=== PATIENT | female | born 1965 | race Caucasian/White ===

== ENCOUNTER 2016-10-12 21:46 | Emergency (ER) | payer MEDICARE, OTHER ==
[~2016-10-12] VITALS: Ht 162.6 cm; Wt 84.0 kg
[2016-10-12 21:51] VITALS: BP 213/116; PULSE 98; RESP 18; TEMP 98.3; O2SAT 93
[2016-10-12 22:05] VITALS: RESP 16; O2SAT 96
[2016-10-12] MEDS ORDERED: LYRI50CA PO (22:10)
[2016-10-12] MEDS ORDERED: OXYC1CAP PO (22:10)
[2016-10-12] MEDS ORDERED: DIVA250ER PO (22:10)
[2016-10-12] MEDS ORDERED: LISI-519 PO (22:10)
[2016-10-12] MEDS ORDERED: BACL10TA PO (22:10)
[2016-10-12] MEDS ORDERED: SODIUM CHLORIDE 0.9% FLUSH 5 ML FLUSH IV FLUSH PRN (22:30)
[2016-10-12 23:02] LABS: AUTOMATED NEUTROPHIL # 8.3 TH/MM3 (1.8-7.7); BASOPHIL # 0.1 TH/MM3 (0-0.2); BASOPHIL % 0.4 % (0.0-2.0); EOSINOPHIL # 0.2 TH/MM3 (0-0.4); EOSINOPHIL % 1.5 % (0.0-4.0); HEMATOCRIT 43.2 % (35.0-46.0); HEMO FLAGS DIFF FINAL; LYMPH % 18.4 % (9.0-44.0); LYMPHOCYTE # 2.1 TH/MM3 (1.0-4.8); MEAN CELL VOLUME 97.2 FL (80.0-100.0); MEAN CORPUSCULAR HEMOGLOBIN 32.8 PG (27.0-34.0); MEAN CORPUSCULAR HGB CONC 33.7 % (32.0-36.0); NEUT % 71.7 % (16.0-70.0); PLATELET COUNT 238 TH/MM3 (150-450); RED BLOOD COUNT 4.44 MIL/MM3 (4.00-5.30); RED CELL DISTRIBUTION WIDTH 12.9 % (11.6-17.2); WHITE BLOOD COUNT 11.6 TH/MM3 (4.0-11.0)
[2016-10-12 23:18] LABS: PROTHROMBIN TIME - PATIENT 10.5 SEC (9.8-11.6)
[2016-10-12 23:21] LABS: ANION GAP 7 MEQ/L (5-15); BICARBONATE 29.1 MEQ/L (21.0-32.0); BLOOD UREA NITROGEN 15 MG/DL (7-18); CHLORIDE 112 MEQ/L (98-107); GLOMERULAR FILTRATION RATE 92 ML/MIN (>89); POTASSIUM 3.8 MEQ/L (3.5-5.1); SODIUM (NA) 148 MEQ/L (136-145)
--- NOTE | 2016-10-12 23:21 | PD ---
HPI Chief Complaint: Altered Mental Status Time Seen by Provider: 21:49 Travel History International Travel<30 days: No Contact w/Intl Traveler<30days: No Traveled to known affect area: No History of Present Illness HPI 51yo F with PMH of chronic back pain was brought in by because she was falling asleep while having dinner. States she has had these episodes before and has gotten sleep studies but nothing was wrong. Pt does take oxycodone 5mg for pain. She is also on lisinopril, lyria, baclofen and depakote. Pt woke up when they transferred her to stretcher from car and was immediately very upset that she is in the hospital. Pt denies any complaints. Denies any trauma. PFSH Past Medical History Depression: Yes Cardiovascular Problems: Yes Diminished Hearing: No Hypertension: Yes Musculoskeletal: Yes (chronic back pain) Seizures: Yes ?: Not Menopausal: Yes Social History Alcohol Use: No Tobacco Use: Yes (1 ppd) Substance Use: No Allergies-Medications (Allergen,Severity, Reaction): Coded Allergies: No Known Allergies (Unverified , 10/12/16) Reported Meds & Prescriptions Reported Meds & Active Scripts Active Reported Depakote ER (Divalproex Sodium) 250 Mg Marco 250 Mg PO DAILY Baclofen 10 Mg Tab 10 Mg PO TID Lyrica (Pregabalin) 50 Mg Cap 50 Mg PO DAILY Lisinopril 5 Mg Tab 5 Mg PO DAILY Oxycodone (Oxycodone HCl) 5 Mg Cap 5 Mg PO Q6H PRN Review of Systems Except as stated in HPI: all other systems reviewed are Neg Physical Exam Narrative GENERAL: 51yo F not in distress. SKIN: Focused skin assessment warm/dry. HEAD: Atraumatic. Normocephalic. EYES: Pupils equal and round. No scleral icterus. No injection or drainage. ENT: No nasal bleeding or discharge. Mucous membranes pink and moist. NECK: Trachea midline. No JVD. CARDIOVASCULAR: Regular rate and rhythm. No murmur appreciated. RESPIRATORY: No accessory muscle use. Clear to auscultation. Breath sounds equal bilaterally. GASTROINTESTINAL: Abdomen soft, non-tender, nondistended. MUSCULOSKELETAL: No obvious deformities. No clubbing. No cyanosis. No edema. NEUROLOGICAL: Awake and alert. No obvious cranial nerve deficits. Motor grossly within normal limits. Normal speech. Data Data Last Documented VS Vital Signs Date Time Temp Pulse Resp B/P Pulse Ox O2 Delivery O2 Flow Rate FiO2 10/12/16 21:51 98.3 98 18 213/116 93 Orders Basic Metabolic Panel (Bmp) (10/12/16 22:20) Complete Blood Count With Diff (10/12/16 22:20) Prothrombin Time / Inr (Pt) (10/12/16 22:20) Act Partial Throm Time (Ptt) (10/12/16 22:20) Thyroid Stimulating Hormone (10/12/16 22:20) Ct Brain W/O Iv Contrast(Rout) (10/12/16 22:20) Blood Glucose (10/12/16 22:20) Ecg Monitoring (10/12/16 22:20) Iv Access Insert/Monitor (10/12/16 22:20) Oximetry (10/12/16 22:20) Sodium Chloride 0.9% Flush (Ns Flush) (10/12/16 22:30) Valproic Acid (Depakene) (10/12/16 22:00) Labs Laboratory Tests Test 10/12/16 22:00 White Blood Count 11.6 TH/MM3 Red Blood Count 4.44 MIL/MM3 Hemoglobin 14.5 GM/DL Hematocrit 43.2 % Mean Corpuscular Volume 97.2 FL Mean Corpuscular Hemoglobin 32.8 PG Mean Corpuscular Hemoglobin 33.7 % Concent Red Cell Distribution Width 12.9 % Platelet Count 238 TH/MM3 Mean Platelet Volume 9.1 FL Neutrophils (%) (Auto) 71.7 % Lymphocytes (%) (Auto) 18.4 % Monocytes (%) (Auto) 8.0 % Eosinophils (%) (Auto) 1.5 % Basophils (%) (Auto) 0.4 % Neutrophils # (Auto) 8.3 TH/MM3 Lymphocytes # (Auto) 2.1 TH/MM3 Monocytes # (Auto) 0.9 TH/MM3 Eosinophils # (Auto) 0.2 TH/MM3 Basophils # (Auto) 0.1 TH/MM3 CBC Comment DIFF FINAL Differential Comment Prothrombin Time 10.5 SEC Prothromb Time International 1.0 RATIO Ratio Activated Partial 29.0 SEC Thromboplast Time Sodium Level 148 MEQ/L Potassium Level 3.8 MEQ/L Chloride Level 112 MEQ/L Carbon Dioxide Level 29.1 MEQ/L Anion Gap 7 MEQ/L Blood Urea Nitrogen 15 MG/DL Creatinine 0.67 MG/DL Estimat Glomerular Filtration 92 ML/MIN Rate Random Glucose 73 MG/DL Calcium Level 8.8 MG/DL Thyroid Stimulating Hormone 0.877 uIU/ML 3rd Gen Valproic Acid (Depakene) Level LESS THAN 3 MCG/ML MDM Medical Decision Making Medical Screen Exam Complete: Yes Emergency Medical Condition: Yes Interpretation(s) Laboratory Tests Test 10/12/16 22:00 White Blood Count 11.6 TH/MM3 (4.0-11.0) Red Blood Count 4.44 MIL/MM3 (4.00-5.30) Hemoglobin 14.5 GM/DL (11.6-15.3) Hematocrit 43.2 % (35.0-46.0) Mean Corpuscular Volume 97.2 FL (80.0-100.0) Mean Corpuscular Hemoglobin 32.8 PG (27.0-34.0) Mean Corpuscular Hemoglobin 33.7 % Concent (32.0-36.0) Red Cell Distribution Width 12.9 % (11.6-17.2) Platelet Count 238 TH/MM3 (150-450) Mean Platelet Volume 9.1 FL (7.0-11.0) Neutrophils (%) (Auto) 71.7 % (16.0-70.0) Lymphocytes (%) (Auto) 18.4 % (9.0-44.0) Monocytes (%) (Auto) 8.0 % (0.0-8.0) Eosinophils (%) (Auto) 1.5 % (0.0-4.0) Basophils (%) (Auto) 0.4 % (0.0-2.0) Neutrophils # (Auto) 8.3 TH/MM3 (1.8-7.7) Lymphocytes # (Auto) 2.1 TH/MM3 (1.0-4.8) Monocytes # (Auto) 0.9 TH/MM3 (0-0.9) Eosinophils # (Auto) 0.2 TH/MM3 (0-0.4) Basophils # (Auto) 0.1 TH/MM3 (0-0.2) CBC Comment DIFF FINAL Differential Comment Prothrombin Time 10.5 SEC (9.8-11.6) Prothromb Time International 1.0 RATIO Ratio Activated Partial 29.0 SEC Thromboplast Time (24.3-30.1) Sodium Level 148 MEQ/L (136-145) Potassium Level 3.8 MEQ/L (3.5-5.1) Chloride Level 112 MEQ/L (98-107) Carbon Dioxide Level 29.1 MEQ/L (21.0-32.0) Anion Gap 7 MEQ/L (5-15) Blood Urea Nitrogen 15 MG/DL (7-18) Creatinine 0.67 MG/DL (0.50-1.00) Estimat Glomerular Filtration 92 ML/MIN (>89) Rate Random Glucose 73 MG/DL (74-106) Calcium Level 8.8 MG/DL (8.5-10.1) Thyroid Stimulating Hormone 0.877 uIU/ML 3rd Gen (0.358-3.740) Valproic Acid (Depakene) Level LESS THAN 3 MCG/ML (50-100) Last Impressions Head CT 10/12/16 2220 Signed Impressions: Service Date/Time: Thursday, October 13, 2016 00:18 - CONCLUSION: Normal examination. Efrain Johnson MD Differential Diagnosis Narcolepsy vs. medication overdose vs. medication effects Narrative Course 51yo F with frequent sleeps that is hard to arouse. Pt has no complaints. Pt may have narcolepsy but needs outpatient work up. Labs reviewed, TSH normal. BMP unremarkable. Valproic acid low. CT brain normal. Pt has been observed in the ED and had no apneic episodes. Pt is sleepy but easily arousable here. Return precautions given. Diagnosis Primary Impression: Encounter for medical screening examination Referrals: Marleny Covington MD Patient Instructions: General Instructions Departure Forms: Tests/Procedures Additional Instructions: Please follow up with your PMD or neurology for further work up. Return to the ED if symptoms worsen. Med/Other Pt SpecificInfo: No Change to Meds Disposition: 01 DISCHARGE HOME Condition: Stable Sunita Samuel DO October 12, 2016 23:21
--- NOTE | 2016-10-13 00:40 | RADRPT ---
EXAM DATE/TIME: 10/13/2016 00:18 [facility] COMPARISON: No previous studies available for comparison. INDICATIONS : Altered mental status. RADIATION DOSE: 43.19 CTDIvol (mGy) MEDICAL HISTORY : Seizures. Hypertension. SURGICAL HISTORY : None. ENCOUNTER: Initial ACUITY: 1 day PAIN SCALE: 0/10 LOCATION: cranial TECHNIQUE: Multiple contiguous axial images were obtained of the head. Using automated exposure control and adj ustment of the mA and/or kV according to patient size, radiation dose was kept as low as reasonably a chievable to obtain optimal diagnostic quality images. FINDINGS: CEREBRUM: The ventricles are normal for age. No evidence of midline shift, mass lesion, hemorrhage or acute in farction. No extra-axial fluid collections are seen. POSTERIOR FOSSA: The cerebellum and brainstem are intact. The 4th ventricle is midline. The cerebellopontine angle i s unremarkable. EXTRACRANIAL: The visualized portion of the orbits is intact. SKULL: The calvaria is intact. No evidence of skull fracture. CONCLUSION: Normal examination. Efrain Johnson MD on October 13, 2016 at 0:38 Board Certified Radiologist. This report was verified electronically.
== END 2016-10-13 03:05 | disposition home or self-care (01) ==
LOC: NEPE 21:46
DX: M54.9 Dorsalgia, unspecified (principal); G89.29 Other chronic pain; I10 Essential (primary) hypertension; F17.210 Nicotine dependence, cigarettes, uncomplicated
CPT/HCPCS: 70450; 80048; 80164; 84443; 85025; 85610; 85730; 99284